=== PATIENT | female | born 1960 | race Caucasian/White ===

== ENCOUNTER 2018-06-30 10:08 | Emergency (ER) | payer BC ==
[~2018-06-30] VITALS: Ht 160 cm; Wt 69.8 kg
[~2018-06-30 10:08] MED LIST: BUTALB-APAP-CA1 EACH PO; DYAZIDE, MA1 CAPSULE PO; TOPIRAMATE25 MG PO
[2018-06-30 11:28] LABS: BASOPHIL (%) 0.3 % (0-1); EOSINOPHIL (%) 0.2 % (0-5); HEMATOCRIT 40.7 % (36.0-46.0); HEMOGLOBIN 14.2 G/DL (11.9-15.5); IMMATURE GRANULOCYTE (%) 0.3 % (0.0-0.7); LYMPHOCYTE (%) 13.6 % (15-42); LYMPHOCYTE COUNT 1.5 K/uL (1.0-2.8); MCH 31.8 PG (29.0-34.0); MCHC 34.9 G/DL (30.0-36.0); MCV 91.1 FL (83-99); MONOCYTE COUNT 0.8 K/uL (0-0.8); NEUTROPHIL (%) 78.6 % (45-76); NEUTROPHIL COUNT 8.4 K/uL (1.8-6.4); PLATELET COUNT 270 K/uL (156-360); RBC DIS.WIDTH-CV 11.9 % (11.8-14.6); RBC DIS.WIDTH-SD 39.9 % (39-53); RED BLOOD COUNT 4.47 M/uL (3.80-5.20); WHITE BLOOD COUNT 10.7 K/uL (4.1-10.2)
[2018-06-30 11:42] LABS: ALBUMIN 4.7 g/dL (3.2-4.8); CHLORIDE 103 mEq/L (99-109); POTASSIUM 3.5 mEq/L (3.7-5.4); SODIUM 138 mEq/L (136-147)
[2018-06-30 11:44] LABS: GLUCOSE 114 mg/dL (70-99)
[2018-06-30 11:45] LABS: TOTAL PROTEIN 8.2 g/dL (6.4-8.3)
[2018-06-30 11:46] LABS: TOTAL BILIRUBIN 0.6 mg/dL (0.0-1.0)
[2018-06-30 11:48] LABS: ALKALINE PHOSPHATASE 95 IU/L (3-129); CREATININE 0.8 mg/dL (0.6-1.3); GFR ESTIMATE (CALCULATED) > 59 mL/min/
[2018-06-30 11:49] LABS: UREA NITROGEN (BUN) 18 mg/dL (9-23)
[2018-06-30 11:50] LABS: AST (GOT) 26 IU/L (2-34)
[2018-06-30 11:51] LABS: ALT (GPT) 29 IU/L (3-49); LIPASE 13 U/L (1.0-51.0)
[2018-06-30 12:24] VITALS: BP 128/69
[2018-06-30] MEDS ORDERED: KLOR-CON M2020 MEQ PO (16:10)
[2018-06-30] MEDS ORDERED: LO-DOSE ASPIRIN81 M1 PO (16:21)
[2018-06-30] MEDS ORDERED: FISH OIL 1,0001 EAC7 PO (16:21)
[2018-06-30] MEDS ORDERED: HYDROCODON-ACE1 EA11 PO (16:22)
[2018-06-30] MEDS ORDERED: BIOTIN 5000MCG PO (16:22)
[2018-06-30] MEDS ORDERED: ZYRTEC10 M3 PO (16:22)
[2018-06-30] MEDS ORDERED: OMEPRAZOLE40 M1 PO (16:22)
[2018-07-01] MEDS ORDERED: NORCO 5/3251 TABLET PO (23:24)
== END 2018-06-30 12:37 | disposition home or self-care (01) ==
LOC: EME 10:08
PROVIDERS: Emergency Medicine
DX: K80.10 Calculus of gallbladder with chronic cholecystitis without obstruction (principal); F41.1 Generalized anxiety disorder; K21.9 Gastro-esophageal reflux disease without esophagitis; R19.7 Diarrhea, unspecified; R51 Headache; R05 Cough; Z90.710 Acquired absence of both cervix and uterus; Z85.828 Personal history of other malignant neoplasm of skin; Z79.82 Long term (current) use of aspirin; Z88.1 Allergy status to other antibiotic agents; Z88.2 Allergy status to sulfonamides; Z83.3 Family history of diabetes mellitus; Z87.891 Personal history of nicotine dependence
CPT/HCPCS: 76705; 80053; 81003; 83690; 85025; 85610; 99281; 99285; J2270; J2405; J7030

== ENCOUNTER 2018-07-01 15:38 | Day surgery (SDC) | payer BC ==
[~2018-07-01] VITALS: Ht 160 cm; Wt 69.8 kg
[~2018-07-01 15:38] MED LIST changes: +BIOTIN 5000MCG PO; +FISH OIL 1,0001 EAC7 PO; +HYDROCODON-ACE1 EA11 PO; +KLOR-CON M2020 MEQ PO; +LO-DOSE ASPIRIN81 M1 PO; +OMEPRAZOLE40 M1 PO; +ZYRTEC10 M3 PO
[2018-07-01 16:12] VITALS: BP 120/76
[2018-07-01] MEDS ORDERED: NORCO 5/3251 TABLET PO (23:24)
[2018-07-02 00:45] VITALS: BP 112/65
[2018-07-02 03:52] VITALS: BP 101/56
[2018-07-02 06:21] LABS: MCH 31.9 PG (29.0-34.0); MCHC 34.9 G/DL (30.0-36.0); MCV 91.6 FL (83-99); PLATELET COUNT 207 K/uL (156-360); RBC DIS.WIDTH-CV 12.1 % (11.8-14.6); RBC DIS.WIDTH-SD 40.7 % (39-53); RED BLOOD COUNT 3.82 M/uL (3.80-5.20)
[2018-07-02 06:23] LABS: HEMOGLOBIN 12.2 G/DL (11.9-15.5)
[2018-07-02 07:00] LABS: ALBUMIN 3.4 G/DL (3.2-4.8); ALKALINE PHOSPHATASE 155 IU/L (3-129); ALT (GPT) 456 IU/L (3-49); AST (GOT) 532 IU/L (2-34); CHLORIDE 103 MEQ/L (99-109); CREATININE 0.7 MG/DL (0.6-1.3); GFR ESTIMATE (CALCULATED) > 59 mL/min/; GLUCOSE 145 mg/dL (70-99); LIPASE 10 U/L (1.0-51.0); POTASSIUM 3.9 MEQ/L (3.7-5.4); SODIUM 139 MEQ/L (136-147); TOTAL BILIRUBIN 1.8 MG/DL (0.0-1.0); TOTAL PROTEIN 5.7 G/DL (6.4-8.3); UREA NITROGEN (BUN) 7 mg/dL (9-23)
[2018-07-02 07:54] VITALS: BP 109/52
[2018-07-02 12:17] VITALS: BP 107/50
[2018-07-02] MEDS ORDERED: [UNRECOGNIZED DRUG - REMARK] (14:40)
== END 2018-07-02 15:15 | disposition home or self-care (01) ==
LOC: SDC 15:38 → 2SOUTH 22:53 → ENRESERV 23:24 → 2SOUTH 07-02 00:20 → 2EAST 07-02 00:23
PROVIDERS: Surgery
DX: K80.10 Calculus of gallbladder with chronic cholecystitis without obstruction (principal); K80.62 Calculus of gallbladder and bile duct with acute cholecystitis without obstruction; K21.0 Gastro-esophageal reflux disease with esophagitis; F41.1 Generalized anxiety disorder; Z79.82 Long term (current) use of aspirin; Z83.3 Family history of diabetes mellitus; Z82.0 Family history of epilepsy and other diseases of the nervous system; Z88.1 Allergy status to other antibiotic agents; Z88.2 Allergy status to sulfonamides
CPT/HCPCS: 74300; 80053; 83690; 85027; C1725; C1769; C1894; G0378; J0330; J1100; J1170; J2175; J2250; J2405; J2765; J3010; J7120; Q0175; S0020; S0074